=== PATIENT | male | born 1985 | race Native Hawaiian/Other Pacific Islander ===

== ENCOUNTER → 2024-02-28 12:25 | Outpatient (CLI) | payer OTHER, SELFPAY ==
--- NOTE | 2024-02-28 12:31 | DI.MRI.S_ITS ---
PROCEDURE: MR SHOULDER RT W CON INDICATIONS: SHOULDER PAIN TECHNIQUE: After the administration of 12 mL of dilute intra-articular Gadolinium contrast, oblique coronal T1 and T2 spin echo with fat saturation, oblique sagittal T1 spin echo with and without fat saturation, oblique sagittal T2 fast spin echo with fat saturation, axial T1 spin echo with fat saturation through the shoulder. COMPARISON: [facility], , [place] SHOULDER INJECTION MR/CT RT, 02/28/2024, 12:10. FINDINGS: Image quality: Excellent. Rotator cuff: Mild to moderate supraspinatus and infraspinatus tendinosis. The teres minor and subscapularis tendons are intact. No significant rotator cuff muscle atrophy. Bones and bursae: No acute trabecular bone injury or fracture. Mild partial-thickness cartilage irregularity is seen in the glenohumeral joint. There is focal cartilage fissuring along the anterior glenoid. There are dlme-fp-cfoejwuu degenerative changes at the acromioclavicular joint with subchondral edema and small marginal osteophytes. A small amount of fluid is seen in the subacromial/subdeltoid bursa. There is also small amount of [id number] contrast material in the subcoracoid bursa that is suspected to be related to the arthrogram injection. Capsule and soft tissues: Nondisplaced tearing of the superior labrum extending from posterior superior to anterior inferior. An 8 mm paralabral cyst is seen at the posterior superior labrum. There is moderate proximal biceps long head tendinosis. Glenohumeral ligaments are intact. IMPRESSION: 1. Nondisplaced labral tearing extending from the posterior superior labrum. The superior labrum and terminating at the anterior inferior labrum. There is an 8 mm paralabral cyst posterior superiorly. 2. Moderate proximal biceps long head tendinosis. 3. Ndcn-wj-[id number] supraspinatus and infraspinatus tendinosis. No significant rotator cuff tendon tear is seen. 4. 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 5. Sdgj-gu-mkvxqmes acromioclavicular joint osteoarthrosis. Approved by: Ernie Navarrete M.D. on 02/28/2024 at 14:57
--- NOTE | 2024-02-28 12:32 | DI.RAD.S_ITS ---
PROCEDURE: [place] SHOULDER INJECTION MR/CT RT INDICATIONS: SHOULDER PAIN COMPARISON: None. TECHNIQUE: The indications, alternatives, benefits, risks, and complications of the procedure were explained to the patient. Written informed consent was obtained and placed in the chart. The shoulder was examined fluoroscopically and a site for needle placement chosen for entry into the glenohumeral joint from an anterior approach. The skin was prepped and draped in a sterile fashion, and 1% lidocaine infiltrated from skin down to joint capsule. A spinal needle was inserted into the glenohumeral joint, and a small amount of iodinated contrast media injected to confirm intra-articular placement of the needle tip. This was followed by approximately 12 mL dilute solution of a gadolinium containing MR contrast agent. The needle was removed and a dressing was applied. The patient was given postprocedural instructions and sent to the MR suite for MR imaging. FINDINGS: A single fluoroscopic spot image demonstrates intra-articular location of injected iodinated contrast. IMPRESSION: Successful fluoroscopically guided administration of dilute Gadolinium solution into the shoulder joint for MR arthrogram. Dictated by: Ashok Prado M.D. on 02/28/2024 at 15:01 Approved by: Ashok Prado M.D. on 02/28/2024 at 15:01
[2024-02-28] MEDS: LIDOCAINE 1% 20 ML INJ (13:00)
[2024-02-28] MEDS: SODIUM CHLORIDE 0.9 % 20 ML VIAL IV (13:00)
== END ==
LOC: RAD 12:30
PROVIDERS: Referring Provider General Practice; Visit Provider General Practice
DX: S43.431A Superior glenoid labrum lesion of right shoulder, initial encounter (principal); M67.411 Ganglion, right shoulder; M54.50 Low back pain, unspecified; M25.519 Pain in unspecified shoulder
CPT/HCPCS: 23350; 73040; 73222; A9579; Q9967

== ENCOUNTER → 2024-06-12 10:58 | Outpatient (CLI) | payer OTHER, SELFPAY ==
--- NOTE | 2024-06-12 11:01 | DI.MRI.S_ITS ---
PROCEDURE: MR ORBITS FACE NECK WO/W CON INDICATIONS: NEOPLASM OF BONE AND ARTICULAR CARTILAGE TECHNIQUE: Sagittal/axial/coronal T1 spin echo and STIR. After the administration of contrast, axial/coronal/sagittal T1 fast spin echo with fat saturation through the neck. COMPARISON: None. FINDINGS: Skull Base: The visualized intracranial contents, skull, and orbits are unremarkable. Visualized paranasal sinuses are clear. Pharynx and Larynx: The nasopharyngeal airway is patent and midline. Parapharyngeal soft tissues including palatine tonsils and base of the tongue are normal. Retropharyngeal space unremarkable. Normal appearance of the false and true vocal cords. Muscles and Fascial Planes: There is a multi-cystic mass lesion in the left suprahyoid neck. The largest portion of the lesion is a cluster of cystic structures centered on the left pterygoid musculature measuring overall 2.6 x 2.9 cm. There is a more linear tubular cystic structure extending anteriorly, eroding the medial cortex of the left mandibular ramus, involving the mandibular marrow, and terminating lateral to the mylohyoid sling. No discernible enhancement. No adenopathy. Lymph Nodes: No evidence of adenopathy. Vasculature: Unremarkable. Submandibular and Parotid Glands: Normal. Thyroid: Unremarkable. Bones: No intrinsic lesion is evident. IMPRESSION: Nonenhancing multi-cystic mass lesion in the left suprahyoid neck adjacent to angle of the mandible. Differential considerations would include atypical 2nd branchial cleft cyst and lymphatic malformation. Consider ENT consultation and or percutaneous sampling. Approved by: Aram Post M.D. on 06/13/2024 at 17:27
== END ==
DX: D48.0 Neoplasm of uncertain behavior of bone and articular cartilage (principal)
CPT/HCPCS: 70543; A9579